=== PATIENT | male | born 1980 | race African-American/Black ===

== ENCOUNTER 2018-09-16 17:59 | Emergency (ER) | payer MEDICAID, MEDICARE ==
[~2018-09-16] VITALS: Ht 177.8 cm; Wt 66.0 kg
[2018-09-16] MEDS ORDERED: ACETAMINOPHEN 325MG TABLET PO ONE (20:30)
[2018-09-16] MEDS ORDERED: TETANUS, DIPHTHERIA, PERTUSSIS VAC/PF 0.5ML (>7YR OLD) IM ONE (20:30)
[2018-09-16] MEDS ORDERED: CEPHALEXIN 250MG CAPSULE PO ONE (20:30)
[2018-09-16] MEDS ORDERED: BACITRACIN ZINC OINT UDPKT TOP ONE (20:30)
[2018-09-16] MEDS ORDERED: BACITRACIN 15GM TUBE TOP SCH (20:45)
[2018-09-16 21:02] VITALS: BP 140/95
== END 2018-09-16 21:03 | disposition home or self-care (01) ==
LOC: ER 17:59
DX: S61.011A Laceration without foreign body of right thumb without damage to nail, initial encounter (principal); F20.9 Schizophrenia, unspecified; F12.10 Cannabis abuse, uncomplicated; F41.9 Anxiety disorder, unspecified; W26.0XXA Contact with knife, initial encounter; Y93.89 Activity, other specified; Y92.89 Other specified places as the place of occurrence of the external cause
CPT/HCPCS: 90471; 90715; 99284